=== PATIENT | female | born 1990 | race Caucasian/White ===

== ENCOUNTER 2019-01-09 05:48 | Emergency (ER) | payer SELFPAY ==
--- NOTE | 2019-01-09 06:04 | EDM.PDOC ---
ED HPI GENERAL MEDICAL PROBLEM - General Chief Complaint: Flank Pain Stated Complaint: POSSIBLE KIDNEY STONE HISTORY OF KIDNEY STONES Time Seen by Provider: 01/09/19 06:15 Source of Information: Reports: Patient, RN Notes Reviewed - History of Present Illness INITIAL COMMENTS - FREE TEXT/NARRATIVE: 28-year-old female comes in with left low back discomfort. This started last evening about 10-12 hours ago. Scribes the pain is an ache in the left low back without radiation. She is not aware of any particular injury. She has had kidney problems in the past with multiple kidney stones and also what sounds like pyelonephritis. Therefore she is very concerned about possibility of some type of recurrent acute event. She did have some mild nausea last evening but has not been vomiting. She has had no fever or chills. The discomfort does not radiate to the left flank groin or leg. Left Flank Pain Score (Numeric/FACES): 4 - Related Data Allergies Allergy/AdvReac Type Severity Reaction Status Date / Time No Known Allergies Allergy Verified 01/09/19 05:57 Home Meds: Home Meds hydroCHLOROthiazide [Hydrochlorothiazide] 25 mg PO DAILY 01/09/19 [History] Past Medical History Genitourinary History: Reports: Pyelonephritis, Renal Calculus - Past Surgical History HEENT Surgical History: Reports: Oral Surgery GI Surgical History: Reports: Cholecystectomy, Hernia Repair/Other Female Surgical History: Reports: Kidney stone extraction, Lithotripsy/ESWL, Ureteral Stent Social & Family History - Family History Family Medical History: Noncontributory - Tobacco Use Smoking Status *Q: Never Smoker - Caffeine Use Caffeine Use: Reports: Coffee, Energy Drinks, Soda, Tea - Recreational Drug Use Recreational Drug Use: No ED ROS GENERAL - Review of Systems Review Of Systems: See Below Constitutional: Denies: Fever, Chills, Diaphoresis HEENT: Reports: No Symptoms Respiratory: Denies: Shortness of Breath Cardiovascular: Denies: Chest Pain GI/Abdominal: Reports: Nausea (Gone). Denies: Abdominal Pain, Vomiting : Reports: Urgency (Mild). Denies: Dysuria, Frequency Musculoskeletal: Reports: Back Pain (Left low back) Skin: Reports: No Symptoms Neurological: Reports: No Symptoms ED EXAM,LOWER BACK PAIN/INJURY - Physical Exam Exam: See Below General Appearance: Alert, No Apparent Distress Throat/Mouth: Normal Inspection Neck: Supple, Full Range of Motion Respiratory/Chest: No Respiratory Distress, Lungs Clear, Normal Breath Sounds Cardiovascular: Regular Rate, Rhythm GI/Abdominal: Soft, Non-Tender Back Exam: CVA Tenderness (L) (Mild tenderness left low back) Extremities: Normal Inspection, Normal Range of Motion Neurological: Alert, No Motor/Sensory Deficits, Oriented x 3 Course - Vital Signs Last Recorded V/S: Last Vital Signs Temp 97.8 F 01/09/19 05:53 Pulse 86 01/09/19 05:53 Resp 16 01/09/19 05:53 BP 142/83 H 01/09/19 05:53 Pulse Ox 98 01/09/19 05:53 - Orders/Labs/Meds Labs: Laboratory Tests 01/09/19 01/09/19 01/09/19 Range/Units 06:10 06:11 06:37 WBC 13.63 H (3.98-10.04) K/mm3 RBC 4.66 (3.98-5.22) M/mm3 Hgb 13.4 (11.2-15.7) gm/L Hct 39.8 (34.1-44.9) % MCV 85.4 (79.4-94.8) fl MCH 28.8 (25.6-32.2) pg MCHC 33.7 (32.2-35.5) g/dl RDW Std Deviation 39.4 (36.4-46.3) fL Plt Count 303 (182-369) K/mm3 MPV 10.8 (9.4-12.3) fl Neut % (Auto) 65.8 (34.0-71.1) % Lymph % (Auto) 20.9 (19.3-51.7) % [place] % (Auto) 9.3 (4.7-12.5) % Eos % (Auto) 3.5 (0.7-5.8) Baso % (Auto) 0.3 (0.1-1.2) % Neut # (Auto) 8.96 H (1.56-6.13) K/mm3 Lymph # (Auto) 2.85 (1.18-3.74) K/mm3 [place] # (Auto) 1.27 H (0.24-0.36) K/mm3 Eos # (Auto) 0.48 H (0.04-0.36) K/mm3 Baso # (Auto) 0.04 (0.01-0.08) K/mm3 Urine Color Yellow (Yellow) Urine Appearance Clear (Clear) Urine pH 6.0 (5.0-8.0) Ur Specific [place] 1.025 (1.005-1.030) Urine Protein Negative (Negative) Urine Glucose (UA) Negative (Negative) Urine Ketones Negative (Negative) Urine Occult Blood Negative (Negative) Urine Nitrite Negative (Negative) Urine Bilirubin Negative (Negative) Urine Urobilinogen 2.0 H (0.2-1.0) Ur Leukocyte Esterase Trace H (Negative) Urine RBC 0-5 (0-5) /hpf Urine WBC 0-5 (0-5) /hpf Ur Epithelial Cells 10-20 H (0-5) /hpf Urine Bacteria Few (FEW) /hpf Urine Mucus Not seen (FEW) /hpf Urine HCG, Qual Negative (NEGATIVE) - Re-Assessments/Exams Free Text/Narrative Re-Assessment/Exam: 01/09/19 22:22 UA did come back negative for infection and also negative for hematuria. The likelihood of stone at this time causing her left back discomfort without radiation and pain not severe very slight. This has been discussed with patient.'s comfortable with not doing a CT at this time. Discharge instructions as documented. 01/09/19 22:23 Departure - Departure Time of Disposition: 07:27 Disposition: Home, Self-Care 01 Condition: Fair Clinical Impression: Back pain Qualifiers: Back pain location: low back pain Back pain laterality: left Sciatica presence : without sciatica - Discharge Information Instructions: Acute Back Pain, Adult Referrals: PCP,Not In Area [Primary Care Provider] - Forms: ED Department Discharge, ED Return to Work/School Form Additional Instructions: Try avoid heavy lifting as best you can until pain resolving, alternate Tylenol and ibuprofen as needed for discomfort, also alternating ice packs and heat will help the discomfort. Follow-up clinic if not getting back to normal within 2-3 days as expected, return to ED as needed if symptoms worsening in any way.
== END 2019-01-09 07:35 | disposition home or self-care (01) ==
LOC: JD.ED 05:48
DX: M54.5 Low back pain (principal); Z79.899 Other long term (current) drug therapy
CPT/HCPCS: 36415; 81001; 81025; 85025; 99282; 99283